=== PATIENT | male | born 1940 | race Caucasian/White ===

== ENCOUNTER 2017-05-18 13:34 | Emergency (ER) | payer OTHER, BC ==
[~2017-05-18] VITALS: Ht 177.8 cm; Wt 78.1 kg
[2017-05-18 14:05] LABS: HEMATOCRIT 45.3 % (38.0-50.0); MCH 29.1 PG (29.0-34.0); MCHC 35.1 G/DL (30.0-36.0); MCV 82.8 FL (86-99); MEAN PLAT.VOLUME 11.1 uM^3 (9.0-12.4); PLATELET COUNT 212 K/uL (156-360); RBC DIS.WIDTH-SD 36.8 % (39-53); RED BLOOD COUNT 5.47 M/uL (4.00-5.50); WHITE BLOOD COUNT 10.1 K/uL (4.1-10.2)
[2017-05-18 14:11] LABS: CHLORIDE 99 mEq/L (99-109); POTASSIUM 4.3 mEq/L (3.7-5.4); SODIUM 129 mEq/L (136-147)
[2017-05-18 14:13] LABS: GLUCOSE 122 mg/dL (70-99)
[2017-05-18 14:14] LABS: ANION GAP 10 MEQ/L (2-14)
[2017-05-18 14:17] LABS: GFR ESTIMATE (CALCULATED) 42 mL/min/; UREA NITROGEN (BUN) 22 mg/dL (9-23)
[2017-05-18 14:24] LABS: TROP-I INTERPRETATION NEGATIVE; TROPONIN-I 0.01 ng/mL (0.0-0.30)
[2017-05-18 17:58] VITALS: BP 164/80
== END 2017-05-18 18:01 | disposition home or self-care (01) ==
LOC: EME 13:34
PROVIDERS: Emergency Medicine
DX: R42 Dizziness and giddiness (principal); E86.0 Dehydration; I10 Essential (primary) hypertension; E78.5 Hyperlipidemia, unspecified; Z94.0 Kidney transplant status; Z85.46 Personal history of malignant neoplasm of prostate; Z87.891 Personal history of nicotine dependence
CPT/HCPCS: 70450; 71020; 80048; 84484; 85027; 93005; 99281; 99285; J7030